=== PATIENT | female | born 1985 | race Caucasian/White ===

== ENCOUNTER 2021-02-07 01:28 | Inpatient (IN) | payer BC ==
[2021-02-07] MEDS ORDERED: Sodium Chloride 0.9% 2.5 ML Syringe FLUSH PRN (01:37)
[2021-02-07] MEDS ORDERED: Carboprost Tromethamine 250 MCG/1 ML Amp IM PRN (01:37)
[2021-02-07] MEDS ORDERED: Sodium Chloride 0.9% 10 ML SDV IV PRN (01:37)
[2021-02-07] MEDS ORDERED: Ondansetron 4 MG/2 ML SDV IVPUSH PRN (01:37)
[2021-02-07] MEDS ORDERED: Misoprostol 200 MCG Tab PO PRN (01:37)
[2021-02-07] MEDS ORDERED: Lidocaine 1% 50 ML MDV INJECT PRN (01:37)
[2021-02-07] MEDS ORDERED: Water For Irrigation,Sterile 1,000 ML Container IRR PRN (01:37)
[2021-02-07] MEDS ORDERED: Methylergonovine 0.2 MG/1 ML Amp IM PRN (01:37)
[2021-02-07] MEDS ORDERED: Sodium Chloride 0.9% 10 ML Syringe FLUSH PRN (01:37)
[2021-02-07] MEDS ORDERED: Nalbuphine 10 MG/1 ML Vial IVPUSH PRN (01:37)
[2021-02-07] MEDS ORDERED: Butorphanol 1 MG/ML SDV IVPUSH PRN (01:37)
[2021-02-07] MEDS ORDERED: Tranexamic Acid 1,000 MG in Sodium Chloride 0.9% 100 ML IV PRN (01:37)
[2021-02-07] MEDS ORDERED: Lactated Ringers 1,000 ML IV SCH (01:45)
[2021-02-07] MEDS ORDERED: Oxytocin/0.9 % Sodium Chloride 30 UNIT/500 ML BAG IV SCH (01:45)
--- NOTE | 2021-02-07 02:00 | PCM.LDHP ---
L&D History of Present Illness - General Date of Service: 02/07/21 Admit Problem/Dx: Patient Status Order with Admit Dx/Problem 02/07/21 01:37 Patient Status [ADT] Routine Admission Diagnosis/Problem Admission Diagnosis/Problem Source of Information: Patient History Limitations: Reports: No Limitations - History of Present Illness Introduction:: 35 year old G1 at 39w3d (EDC 02/11/2021 by LMP c/w 1st trimester US) presented to Labor and Delivery with spontaneous onset of labor. She had routine OB appointment today with Dr. Jeffers and was originally scheduled for IOL tomorrow due to gestational hypertension. States her contractions started around 1700 today and were occurring about every 4-5 minutes upon arrival to the hospital. Desires epidural at this time. Reports small amount of leaking clear fluid and pink-tinged discharge. Reports good movement today. - Related Data Allergies/Adverse Reactions: Allergies Allergy/AdvReac Type Severity Reaction Status Date / Time meperidine [From Demerol] Allergy Vomiting Verified 01/08/21 16:34 morphine Allergy Vomiting Verified 01/08/21 16:34 shellfish derived Allergy Anaphylactic Verified 01/08/21 16:34 Shock Home Medications: Home Meds Pantoprazole Sodium [Protonix] 40 mg PO QAM #30 tablet. 07/25/19 [Rx] Docusate Sodium [Colace] 2 cap PO DAILY 01/08/21 [History] Iron 1 tab PO DAILY 01/08/21 [History] Ondansetron [Zofran] 1 tab PO Q6HR PRN 01/08/21 [History] Pnv No.95/Ferrous Fum/Folic AC [ Vitamin Tablet] 1 tab PO DAILY 01/08/21 [History] Past Medical History Gastrointestinal History: Reports: Other (See Below) Other Gastrointestinal History: ulcers - Past Surgical History GI Surgical History: Reports: Cholecystectomy Social & Family History - Caffeine Use Caffeine Use: Reports: Coffee, Soda, Tea H&P Review of Systems - Review of Systems: Review Of Systems: See Below General: Reports: No Symptoms HEENT: Reports: No Symptoms Pulmonary: Reports: No Symptoms Cardiovascular: Reports: No Symptoms Gastrointestinal: Reports: Abdominal Pain Genitourinary: Reports: No Symptoms Musculoskeletal: Reports: Back Pain Skin: Reports: No Symptoms Psychiatric: Reports: No Symptoms Neurological: Reports: No Symptoms L&D Exam - Exam Exam: See Below - OB Specific Contraction Frequency (min): q4-5 minutes Contraction Intensity: Moderate Movement: Active Heart Tones: Present Heart Tones per Min: 130 Heart Rate (FHR) Variability: Moderate (6-25 bmp) Presentation: Vertex Estimated Weight: 3766 grams by ultrasound on 01/18/2021 - Sanchez Score Sanchez Score Cervix Position: Midposition Sanchez Score Consistency: Medium Sanchez Score Effacement: 51-70% Sanchez Score Dilation: 3-4 cm Sanchez Score 's Station: -2 Sanchez Score Total: 7 - Exam General: Alert Lungs: Normal Respiratory Effort Cardiovascular: Regular Rate GI/Abdominal Exam: Soft, Non-Tender Back Exam: Normal Inspection, Full Range of Motion Extremities: Normal Range of Motion, Non-Tender, No Pedal Edema Skin: Warm, Dry, Intact Psychiatric: Normal Mood Problem List Initiated/Reviewed/Updated: Yes Orders Last 24hrs: Active Orders 24 hr Category Date Time Status Patient Status [ADT] Routine ADT 02/07/21 01:37 Active Heart Tones [RC] CONTINUOUS Care 02/07/21 01:37 Active Non Stress Test [RC] PER UNIT ROUTINE Care 02/07/21 01:37 Active May Shower [RC] ASDIRECTED Care 02/07/21 01:37 Active Notify Provider [RC] PRN Care 02/07/21 01:37 Active Up ad Gely [RC] ASDIRECTED Care 02/07/21 01:37 Active Vaginal Exam [RC] PRN Care 02/07/21 01:37 Active Vital Signs [RC] PER UNIT ROUTINE Care 02/07/21 01:37 Active Clear Liquid Diet [DIET] Diet 02/07/21 Breakfast Active CBC W/O DIFF,HEMOGRAM [HEME] Routine Lab 02/07/21 01:37 Ordered RPR (SYPHILIS SERO) W/ RFLX [REF] Routine Lab 02/07/21 01:37 Ordered TYPE AND SCREEN [BBK] Routine Lab 02/07/21 01:37 Ordered Butorphanol [Stadol] Med 02/07/21 01:37 Active 1 mg IVPUSH Q1H PRN Carboprost Tromethamine [Hemabate DS] Med 02/07/21 01:37 Active 250 mcg IM ASDIRECTED PRN Lactated Ringers [Ringers, Lactated] 1,000 ml Med 02/07/21 01:45 Active IV ASDIRECTED Lidocaine 1% [Xylocaine 1%] Med 02/07/21 01:37 Active 50 ml INJECT ONETIME PRN Methylergonovine [Methergine] Med 02/07/21 01:37 Active 0.2 mg IM ASDIRECTED PRN Nalbuphine [Nubain] Med 02/07/21 01:37 Active 10 mg IVPUSH Q1H PRN Ondansetron [Zofran] Med 02/07/21 01:37 Active 4 mg IVPUSH Q4H PRN Oxytocin/0.9 % Sodium Chloride [Oxytocin 30 Unit/500 ML Med 02/07/21 01:45 Active -NS] 30 unit in 500 ml IV TITRATE Sodium Chloride 0.9% [Normal Saline] Med 02/07/21 01:37 Active 10 ml IV ASDIRECTED PRN Sodium Chloride 0.9% [Saline Flush] Med 02/07/21 01:37 Active 10 ml FLUSH ASDIRECTED PRN Sodium Chloride 0.9% [Saline Flush] Med 02/07/21 01:37 Active 2.5 ml FLUSH ASDIRECTED PRN Tranexamic Acid [Cyklokapron] 1,000 mg Med 02/07/21 01:37 Active Sodium Chloride 0.9% [Normal Saline] 100 ml IV ONETIME Water For Irrigation,Sterile [Sterile Water for Med 02/07/21 01:37 Active Irrigation] 1,000 ml IRR ASDIRECTED PRN miSOPROStoL [Cytotec] Med 02/07/21 01:37 Active 200 mcg PO ONETIME PRN Scalp Electrode [WOMSER] Per Unit Routine Oth 02/07/21 01:37 Ordered Peripheral IV Insertion Adult [OM.PC] Routine Oth 02/07/21 01:37 Ordered Resuscitation Status Routine Resus Stat 02/07/21 01:37 Ordered Medication Orders Butorphanol Tartrate (Butorphanol 1 Mg/Ml Sdv) 1 mg IVPUSH Q1H PRN PRN Reason: Pain Carboprost Tromethamine (Carboprost Tromethamine 250 Mcg/1 Ml Amp) 250 mcg IM ASDIRECTED PRN PRN Reason: Post Hemorrhage Oxytocin/Sodium Chloride (Oxytocin 30 Unit/500 Ml-Ns) 30 unit in 500 mls @ 999 mls/hr IV TITRATE [facility] Tranexamic Acid 1,000 mg/ (Sodium Chloride) 110 mls @ 660 mls/hr IV ONETIME PRN PRN Reason: Bleeding Lactated Ringer's (Ringers, Lactated) 1,000 mls @ 150 mls/hr IV ASDIRECTED L[facility]I Lidocaine HCl (Lidocaine 1% 50 Ml Mdv) 50 ml INJECT ONETIME PRN PRN Reason: Laceration repair Methylergonovine Maleate (Methylergonovine 0.2 Mg/1 Ml Amp) 0.2 mg IM ASDIRECTED PRN PRN Reason: Post Hemorrhage Misoprostol (Misoprostol 200 Mcg Tab) 200 mcg PO ONETIME PRN PRN Reason: Post Hemorrhage Nalbuphine HCl (Nalbuphine 10 Mg/1 Ml Vial) 10 mg IVPUSH Q1H PRN PRN Reason: Pain (severe 7-10) Ondansetron HCl (Ondansetron 4 Mg/2 Ml Sdv) 4 mg IVPUSH Q4H PRN PRN Reason: Nausea/Vomiting Sodium Chloride (Sodium Chloride 0.9% 10 Ml Syringe) 10 ml FLUSH ASDIRECTED PRN PRN Reason: Keep Vein Open Sodium Chloride (Sodium Chloride 0.9% 2.5 Ml Syringe) 2.5 ml FLUSH ASDIRECTED PRN PRN Reason: Keep Vein Open Sodium Chloride (Sodium Chloride 0.9% 10 Ml Sdv) 10 ml IV ASDIRECTED PRN PRN Reason: IV Use Sterile Water (Water For Irrigation,Sterile 1,000 Ml Container) 1,000 ml IRR ASDIRECTED PRN PRN Reason: delivery Assessment/Plan Comment:: 35 year old G1 at 39w3d (EDC 02/11/2021 by LMP c/w 1st trimester US) with spontaneous onset of labor * Admit to Labor and Delivery for labor * Rh positive, rubella immune, GBS negative * Gestational hypertension- normotensive upon arrival. Preeclampsia labs ordered. * Will obtain Amnisure due to c/o leaking fluid * Epidural PRN pain management Dispo: stable. Anticipate expectant management of labor.
[2021-02-07] MEDS ORDERED: fentaNYL 100 MCG/2 ML SDV ONE ×2 (02:06→02:46)
[2021-02-07] MEDS ORDERED: Ropivacaine 0.2% PF 2 MG/ML 20 ML SDV ONE (02:06)
[2021-02-07] MEDS ORDERED: Ropivacaine HCl/PF 100 ML ONE ×2 (02:06→08:40)
--- NOTE | 2021-02-07 02:43 | PCM48HPAN ---
Post Anesthesia Note - EVALUATION WITHIN 48HRS OF ANESTHETIC Vital Signs in Normal Range: Yes Patient Participated in Evaluation: Yes Respiratory Function Stable: Yes Airway Patent: Yes Cardiovascular Function Stable: Yes Hydration Status Stable: Yes Pain Control Satisfactory: Yes Nausea and Vomiting Control Satisfactory: Yes Mental Status Recovered: Yes
--- NOTE | 2021-02-07 02:43 | PCM.PREANE ---
Preanesthetic Assessment - Anesthesia/Transfusion/Family Hx Anesthesia History: Prior Anesthesia Reaction Type of Anesthesia Reaction: Anesthesia Awareness Family History of Anesthesia Reaction: No Transfusion History: No Prior Transfusion(s) - Review of Systems General: No Symptoms Pulmonary: No Symptoms Cardiovascular: No Symptoms Gastrointestinal: No Symptoms, Nausea Neurological: No Symptoms Other: Reports: None, Anxiety - Physical Assessment NPO Status Date: 02/07/21 NPO Status Time: 00:00 Height: 5 ft 6 in Weight: 160 lb ASA Class: 3 Mental Status: Alert & Oriented x3 Airway Class: Mallampati = 2 Dentition: Reports: Normal Dentition ROM/Head Extension: Full Lungs: Clear to Auscultation, Normal Respiratory Effort Cardiovascular: Regular Rate, Regular Rhythm - Lab Values: Laboratory Last Values WBC 13.40 K/uL (4.0-11.0) H 02/07/21 02:03 RBC 3.89 M/uL (4.30-5.90) L 02/07/21 02:03 Hgb 11.6 g/dL (12.0-16.0) L 02/07/21 02:03 Hct 35.8 % (36.0-46.0) L 02/07/21 02:03 MCV 92.0 fL (80.0-98.0) 02/07/21 02:03 MCH 29.8 pg (27.0-32.0) 02/07/21 02:03 MCHC 32.4 g/dL (31.0-37.0) 02/07/21 02:03 RDW Std Deviation 47.6 fl (28.0-62.0) 02/07/21 02:03 RDW Coeff of Alex 14 % (11.0-15.0) 02/07/21 02:03 Plt Count 198 K/uL (150-400) 02/07/21 02:03 MPV 10.30 fL (7.40-12.00) 02/07/21 02:03 Nucleated RBC % 0.0 /100WBC 02/07/21 02:03 Nucleated RBCs # 0 K/uL 02/07/21 02:03 - Allergies Allergies/Adverse Reactions: Allergies Allergy/AdvReac Type Severity Reaction Status Date / Time meperidine [From Demerol] Allergy Vomiting Verified 01/08/21 16:34 morphine Allergy Vomiting Verified 01/08/21 16:34 shellfish derived Allergy Anaphylactic Verified 01/08/21 16:34 Shock - Acknowledgements Anesthesia Type Planned: Epidural Pt an Appropriate Candidate for the Planned Anesthesia: Yes Alternatives and Risks of Anesthesia Discussed w Pt/Guardian: Yes Pt/Guardian Understands and Agrees with Anesthesia Plan: Yes PreAnesthesia Questionnaire - Past Health History Medical/Surgical History: Denies Medical/Surgical History Gastrointestinal History: Reports: Other (See Below) Other Gastrointestinal History: ulcers - Past Surgical History GI Surgical History: Reports: Cholecystectomy - SUBSTANCE USE Tobacco Use Status *Q: Never Tobacco User Second Hand Smoke Exposure: No Recreational Drug Use History: No - HOME MEDS Home Medications: Home Meds Pantoprazole Sodium [Protonix] 40 mg PO QAM #30 tablet. 07/25/19 [Rx] Docusate Sodium [Colace] 2 cap PO DAILY 01/08/21 [History] Iron 1 tab PO DAILY 01/08/21 [History] Ondansetron [Zofran] 1 tab PO Q6HR PRN 01/08/21 [History] Pnv No.95/Ferrous Fum/Folic AC [ Vitamin Tablet] 1 tab PO DAILY 01/08/21 [History] - CURRENT (IN HOUSE) MEDS Current Meds: Current Medications Butorphanol Tartrate (Butorphanol 1 Mg/Ml Sdv) 1 mg IVPUSH Q1H PRN PRN Reason: Pain Carboprost Tromethamine (Carboprost Tromethamine 250 Mcg/1 Ml Amp) 250 mcg IM ASDIRECTED PRN PRN Reason: Post Hemorrhage Oxytocin/Sodium Chloride (Oxytocin 30 Unit/500 Ml-Ns) 30 unit in 500 mls @ 999 mls/hr IV TITRATE [facility] Tranexamic Acid 1,000 mg/ (Sodium Chloride) 110 mls @ 660 mls/hr IV ONETIME PRN PRN Reason: Bleeding Lactated Ringer's (Ringers, Lactated) 1,000 mls @ 150 mls/hr IV ASDIRECTED [facility] Lidocaine HCl (Lidocaine 1% 50 Ml Mdv) 50 ml INJECT ONETIME PRN PRN Reason: Laceration repair Methylergonovine Maleate (Methylergonovine 0.2 Mg/1 Ml Amp) 0.2 mg IM ASDIRECTED PRN PRN Reason: Post Hemorrhage Misoprostol (Misoprostol 200 Mcg Tab) 200 mcg PO ONETIME PRN PRN Reason: Post Hemorrhage Nalbuphine HCl (Nalbuphine 10 Mg/1 Ml Vial) 10 mg IVPUSH Q1H PRN PRN Reason: Pain (severe 7-10) Ondansetron HCl (Ondansetron 4 Mg/2 Ml Sdv) 4 mg IVPUSH Q4H PRN PRN Reason: Nausea/Vomiting Sodium Chloride (Sodium Chloride 0.9% 10 Ml Syringe) 10 ml FLUSH ASDIRECTED PRN PRN Reason: Keep Vein Open Sodium Chloride (Sodium Chloride 0.9% 2.5 Ml Syringe) 2.5 ml FLUSH ASDIRECTED PRN PRN Reason: Keep Vein Open Sodium Chloride (Sodium Chloride 0.9% 10 Ml Sdv) 10 ml IV ASDIRECTED PRN PRN Reason: IV Use Sterile Water (Water For Irrigation,Sterile 1,000 Ml Container) 1,000 ml IRR ASDIRECTED PRN PRN Reason: delivery Discontinued Medications Fentanyl (Fentanyl 100 Mcg/2 Ml Sdv) Confirm Administered Dose 100 mcg [facility] Stop: 02/07/21 02:07 Ropivacaine (Naropin 0.2%) Confirm Administered Dose 100 mls @ as directed .[facility]TE [facility] Stop: 02/07/21 02:07 Ropivacaine (Ropivacaine 0.2% Pf 2 Mg/Ml 20 Ml Sdv) Confirm Administered Dose 20 ml [facility] Stop: 02/07/21 02:07
[2021-02-07] MEDS ORDERED: Ondansetron 4 MG/2 ML SDV ONE (02:46)
[2021-02-07 03:03] LABS: BLOOD UREA NITROGEN,BUN 11 mg/dL (7.0-18.0); CARBON DIOXIDE,CO2 25.2 mmol/L (21.0-32.0); CHLORIDE,CL 103 mmol/L (98-107); GLUCOSE RANDOM 98 mg/dL (74-106); POTASSIUM,K 3.6 mmol/L (3.5-5.1); SODIUM,NA 137 mmol/L (136-145)
[2021-02-07] MEDS ORDERED: Acetaminophen 500 MG Tab PO ONE (07:30)
[2021-02-07] MEDS ORDERED: Bupivacaine 0.25% 10 ML SDV ONE (08:39)
[2021-02-07] MEDS ORDERED: Docusate Sodium 100 MG Cap PO PRN (11:55)
[2021-02-07] MEDS ORDERED: Ibuprofen 400 MG Tab PO PRN (11:55)
[2021-02-07] MEDS ORDERED: Benzocaine/Menthol 20%-0.5% Spray 78 GM Cannister TOP PRN (11:55)
[2021-02-07] MEDS ORDERED: Acetaminophen 500 MG Tab PO PRN (11:55)
[2021-02-07] MEDS ORDERED: Bisacodyl 10 MG Supp RECTAL PRN (11:55)
[2021-02-07] MEDS ORDERED: Witch Hazel Medicated Pads 40/Jar TOP PRN (11:55)
[2021-02-07] MEDS: Acetaminophen 500 MG Tab PO PRN ×2 (15:38→22:12)
--- NOTE | 2021-02-07 18:36 | PCM.DEL ---
L & D Note - General Info Date of Service: 02/07/21 - Delivery Note Labor: Spontaneous Delivery Outcome: Livebirth Presentation: Left Occiput Anterior (LALITHA) Nuchal Cord: None Anesthesia Type: Epidural Amniotic Fluid Description: Clear Episiotomy Type: None Laceration: 2nd Degree Suture type: Other (moncryl) Suture size: 2-0 Placenta: Intact Cord: 3 Vessels Estimated Blood Loss: 300 Resuscitation Needed: No Score 1 min: 8 Score 5 min: 9 Delivery Comments (Free Text/Narrative):: Live male delivered at 9.03am , 8/9 weight 4070g 2nd degree laceration repaired in layers - General Info Date of Service: 02/07/21 - Patient Data Vitals - Most Recent: Last Vital Signs Temp 37.0 C 02/07/21 15:30 Pulse 85 02/07/21 15:30 Resp 18 02/07/21 15:30 BP 132/76 02/07/21 15:30 Pulse Ox 96 02/07/21 15:30 Weight - Most Recent: 88.904 kg I&O - Last 24 Hours: Intake & Output 02/07/21 02/07/21 02/07/21 06:59 14:59 22:59 Output Total 350 Balance -350 Lab Results Last 24 Hours: Laboratory Results - last 24 hr 02/07/21 02/07/21 02/07/21 Range/Units 02:03 02:03 02:03 WBC 13.40 H (4.0-11.0) K/uL RBC 3.89 L (4.30-5.90) M/uL Hgb 11.6 L (12.0-16.0) g/dL Hct 35.8 L (36.0-46.0) % MCV 92.0 (80.0-98.0) fL MCH 29.8 (27.0-32.0) pg MCHC 32.4 (31.0-37.0) g/dL RDW Std Deviation 47.6 (28.0-62.0) fl RDW Coeff of Alex 14 (11.0-15.0) % Plt Count 198 (150-400) K/uL MPV 10.30 (7.40-12.00) fL Nucleated RBC % 0.0 /100WBC Nucleated RBCs # 0 K/uL Sodium 137 (136-145) mmol/L Potassium 3.6 (3.5-5.1) mmol/L Chloride 103 (98-107) mmol/L Carbon Dioxide 25.2 (21.0-32.0) mmol/L BUN 11 (7.0-18.0) mg/dL Creatinine 0.7 (0.6-1.0) mg/dL Est Cr Clr Drug Dosing 107.01 mL/min Estimated GFR (MDRD) > 60.0 ml/min Glucose 98 (74-106) mg/dL Calcium 8.8 (8.5-10.1) mg/dL Total Bilirubin 0.2 (0.2-1.0) mg/dL AST 17 (15-37) IU/L ALT 18 (14-63) IU/L Alkaline Phosphatase 209 H (46-116) U/L Total Protein 6.5 (6.4-8.2) g/dL Albumin 2.6 L (3.4-5.0) g/dL Globulin 3.9 (2.6-4.0) g/dL Albumin/Globulin Ratio 0.7 L (0.9-1.6) Ur Random Creatinine mg/dL U Random Total Protein (<11.9) mg/dL Protein/Creatinin Ratio Membrane Rupture SARS-CoV-2 RNA (MIGUELINA) (NEGATIVE) Blood Type O POSITIVE Antibody Screen NEGATIVE 02/07/21 02/07/21 02/07/21 Range/Units 02:06 02:06 03:50 WBC (4.0-11.0) K/uL RBC (4.30-5.90) M/uL Hgb (12.0-16.0) g/dL Hct (36.0-46.0) % MCV (80.0-98.0) fL MCH (27.0-32.0) pg MCHC (31.0-37.0) g/dL RDW Std Deviation (28.0-62.0) fl RDW Coeff of Alex (11.0-15.0) % Plt Count (150-400) K/uL MPV (7.40-12.00) fL Nucleated RBC % /100WBC Nucleated RBCs # K/uL Sodium (136-145) mmol/L Potassium (3.5-5.1) mmol/L Chloride (98-107) mmol/L Carbon Dioxide (21.0-32.0) mmol/L BUN (7.0-18.0) mg/dL Creatinine (0.6-1.0) mg/dL Est Cr Clr Drug Dosing mL/min Estimated GFR (MDRD) ml/min Glucose (74-106) mg/dL Calcium (8.5-10.1) mg/dL Total Bilirubin (0.2-1.0) mg/dL AST (15-37) IU/L ALT (14-63) IU/L Alkaline Phosphatase (46-116) U/L Total Protein (6.4-8.2) g/dL Albumin (3.4-5.0) g/dL Globulin (2.6-4.0) g/dL Albumin/Globulin Ratio (0.9-1.6) Ur Random Creatinine 68.1 mg/dL U Random Total Protein 21.5 H (<11.9) mg/dL Protein/Creatinin Ratio 0.3 Membrane Rupture NEGATIVE SARS-CoV-2 RNA (MIGUELINA) NEGATIVE (NEGATIVE) Blood Type Antibody Screen Med Orders - Current: Current Medications Acetaminophen (Acetaminophen 500 Mg Tab) 500 mg PO Q4H PRN PRN Reason: Pain Acetaminophen (Acetaminophen 500 Mg Tab) 1,000 mg PO Q4H PRN PRN Reason: Pain Last Admin: 02/07/21 15:38 Dose: 1,000 mg Documented by: Benzocaine/Menthol (Benzocaine/Menthol 20%-0.5% [place] 78 Gm Cannister) 78 gm TOP ASDIRECTED PRN PRN Reason: Perineal Comfort Measure Last Admin: 02/07/21 15:38 Dose: 1 canister Documented by: Bisacodyl (Bisacodyl 10 Mg Supp) 10 mg RECTAL ONETIME PRN PRN Reason: Constipation Butorphanol Tartrate (Butorphanol 1 Mg/Ml Sdv) 1 mg IVPUSH Q1H PRN PRN Reason: Pain Carboprost Tromethamine (Carboprost Tromethamine 250 Mcg/1 Ml Amp) 250 mcg IM ASDIRECTED PRN PRN Reason: Post Hemorrhage Docusate Sodium (Docusate Sodium 100 Mg Cap) 100 mg PO BID PRN PRN Reason: Constipation Emollient Ointment (Lanolin 100% Cream 7 Gm Tube) 0 gm TOP ASDIRECTED PRN PRN Reason: Sore Nipples Oxytocin/Sodium Chloride (Oxytocin 30 Unit/500 Ml-Ns) 30 unit in 500 mls @ 999 mls/hr IV TITRATE [facility] Last Admin: 02/07/21 09:04 Dose: 999 mls/hr Documented by: Tranexamic Acid 1,000 mg/ (Sodium Chloride) 110 mls @ 660 mls/hr IV ONETIME PRN PRN Reason: Bleeding Lactated Ringer's (Ringers, Lactated) 1,000 mls @ 150 mls/hr IV ASDIRECTED [facility] Ibuprofen (Ibuprofen 400 Mg Tab) 400 mg PO Q4H PRN PRN Reason: Pain Ibuprofen (Ibuprofen 800 Mg Tab) 800 mg PO Q6H PRN PRN Reason: Pain Lidocaine HCl (Lidocaine 1% 50 Ml Mdv) 50 ml INJECT ONETIME PRN PRN Reason: Laceration repair Last Admin: 02/07/21 09:50 Dose: 50 ml Documented by: Methylergonovine Maleate (Methylergonovine 0.2 Mg/1 Ml Amp) 0.2 mg IM ASDIRECTED PRN PRN Reason: Post Hemorrhage Misoprostol (Misoprostol 200 Mcg Tab) 200 mcg PO ONETIME PRN PRN Reason: Post Hemorrhage Nalbuphine HCl (Nalbuphine 10 Mg/1 Ml Vial) 10 mg IVPUSH Q1H PRN PRN Reason: Pain (severe 7-10) Ondansetron HCl (Ondansetron 4 Mg/2 Ml Sdv) 4 mg IVPUSH Q4H PRN PRN Reason: Nausea/Vomiting Sodium Chloride (Sodium Chloride 0.9% 10 Ml Syringe) 10 ml FLUSH ASDIRECTED PRN PRN Reason: Keep Vein Open Sodium Chloride (Sodium Chloride 0.9% 2.5 Ml Syringe) 2.5 ml FLUSH ASDIRECTED PRN PRN Reason: Keep Vein Open Sodium Chloride (Sodium Chloride 0.9% 10 Ml Sdv) 10 ml IV ASDIRECTED PRN PRN Reason: IV Use Sterile Water (Water For Irrigation,Sterile 1,000 Ml Container) 1,000 ml IRR ASDIRECTED PRN PRN Reason: delivery Witch Jovana (Witch Jovana Medicated Pads 40/Jar) 1 pad TOP ASDIRECTED PRN PRN Reason: comfort care Last Admin: 02/07/21 15:38 Dose: 1 pad Documented by: Discontinued Medications Acetaminophen (Acetaminophen 500 Mg Tab) 1,000 mg PO ONETIME ONE Stop: 02/07/21 07:31 Last Admin: 02/07/21 07:41 Dose: 1,000 mg Documented by: Bupivacaine HCl (Bupivacaine 0.25% 10 Ml Sdv) Confirm Administered Dose 10 ml .ROUTE .[facility]-MED ONE Stop: 02/07/21 08:40 Last Admin: 02/07/21 10:57 Dose: Not Given Documented by: Fentanyl (Fentanyl 100 Mcg/2 Ml Sdv) Confirm Administered Dose 100 mcg .ROUTE .[facility]-MED ONE Stop: 02/07/21 02:07 Last Admin: 02/07/21 10:45 Dose: Not Given Documented by: Fentanyl (Fentanyl 100 Mcg/2 Ml Sdv) Confirm Administered Dose 100 mcg .ROUTE .[facility]-MED ONE Stop: 02/07/21 02:47 Last Admin: 02/07/21 10:51 Dose: Not Given Documented by: Ropivacaine (Naropin 0.2%) Confirm Administered Dose 100 mls @ as directed .ROUTE .[facility]-MED ONE Stop: 02/07/21 02:07 Last Admin: 02/07/21 10:45 Dose: Not Given Documented by: Ropivacaine (Naropin 0.2%) Confirm Administered Dose 100 mls @ as directed .ROUTE .[facility]-MED ONE Stop: 02/07/21 08:41 Last Admin: 02/07/21 10:57 Dose: Not Given Documented by: Ondansetron HCl (Ondansetron 4 Mg/2 Ml Sdv) Confirm Administered Dose 4 mg .ROUTE .[facility]-MED ONE Stop: 02/07/21 02:47 Last Admin: 02/07/21 10:51 Dose: Not Given Documented by: Ropivacaine (Ropivacaine 0.2% Pf 2 Mg/Ml 20 Ml Sdv) Confirm Administered Dose 20 ml .ROUTE .[facility]-MED ONE Stop: 02/07/21 02:07 Last Admin: 02/07/21 10:44 Dose: Not Given Documented by: - Problem List & Annotations (1) Vaginal delivery SNOMED Code(s): 147065992 Code(s): O80 - ENCOUNTER FOR FULL-TERM UNCOMPLICATED DELIVERY Status: Acute Current Visit: Yes - Problem List Review Problem List Initiated/Reviewed/Updated: No - My Orders Last 24 Hours: My Active Orders 02/07/21 09:15 Patient Status [ADT] Routine Assess Lochia [WOMSER] Per Unit Routine Assess Uterine Involution [WOMSER] Per Unit Routine Peripheral IV Discontinue [OM.PC] Routine 02/07/21 11:55 Acetaminophen [Tylenol Extra Strength] 1,000 mg PO Q4H PRN Acetaminophen [Tylenol Extra Strength] 500 mg PO Q4H PRN Benzocaine/Menthol [Dermoplast Pain Relief 20%-0.5% [place]] 78 gm TOP ASDIRECTED PRN Docusate Sodium [Colace] 100 mg PO BID PRN Ibuprofen [Motrin] 400 mg PO Q4H PRN Ibuprofen [Motrin] 800 mg PO Q6H PRN Lanolin [Lansinoh HPA] See Dose Instructions TOP ASDIRECTED PRN bisacodyL [Dulcolax] 10 mg RECTAL ONETIME PRN witch Jovana [Tucks] 1 pad TOP ASDIRECTED PRN 02/08/21 05:11 HEMOGLOBIN/HEMATOCRIT,HH [HEME] Timed 02/08/21 Breakfast Regular Diet [DIET] - Plan Plan:: 35 year old G1 at 39w3d (EDC 02/11/2021 by LMP c/w 1st trimester US) with spontaneous onset of labor * Admit to Labor and Delivery for labor * Rh positive, rubella immune, GBS negative * Gestational hypertension- normotensive upon arrival. Preeclampsia labs ordered. * Will obtain Amnisure due to c/o leaking fluid * Epidural PRN pain management Dispo: stable. Anticipate expectant management of labor.
[2021-02-08] MEDS: Acetaminophen 500 MG Tab PO PRN ×2 (06:51→20:32)
--- NOTE | 2021-02-08 07:24 | PCM.POSTAN ---
POST ANESTHESIA ASSESSMENT - MENTAL STATUS Mental Status: Alert, Oriented - VITAL SIGNS Vital Signs: Last Vital Signs Temp 97.2 F 02/08/21 04:54 Pulse 76 02/08/21 04:54 Resp 16 02/08/21 04:54 BP 94/57 L 02/08/21 04:54 Pulse Ox 97 02/08/21 04:54 - RESPIRATORY Respiratory Status: Respiratory Rate WNL, Airway Patent, O2 Saturation Stable - CARDIOVASCULAR CV Status: Pulse Rate WNL, Blood Pressure Stable - GASTROINTESTINAL GI Status: No Symptoms - POST OP HYDRATION Hydration Status: Adequate & Stable
--- NOTE | 2021-02-08 08:37 | PCM.PNPP ---
- General Info Date of Service: 02/08/21 Functional Status: Reports: Pain Controlled, Tolerating Diet, Ambulating, Urinating - Review of Systems General: Reports: Fatigue. Denies: Fever, Weakness Pulmonary: Denies: Shortness of Breath Cardiovascular: Denies: Chest Pain, Palpitations, Lightheadedness Gastrointestinal: Denies: Abdominal Pain, Nausea, Vomiting Genitourinary: Denies: Flank Pain Musculoskeletal: Reports: No Symptoms Skin: Reports: No Symptoms Neurological: Reports: Headache Psychiatric: Reports: No Symptoms - General Info Date of Service: 02/08/21 - Patient Data Vital Signs - Most Recent: Last Vital Signs Temp 36.5 C 02/08/21 08:03 Pulse 91 02/08/21 08:03 Resp 15 02/08/21 08:03 BP 112/69 02/08/21 08:03 Pulse Ox 95 02/08/21 08:03 Weight - Most Recent: 88.904 kg Lab Results - Last 24 Hours: Laboratory Results - last 24 hr 02/07/21 02/08/21 Range/Units 09:03 05:20 Hgb 10.8 L (12.0-16.0) g/dL Hct 33.0 L (36.0-46.0) % Cord ABG pH 7.165 L (7.18-7.38) Cord ABG Base Excess -5 (-10--2) Med Orders - Current: Current Medications Acetaminophen (Acetaminophen 500 Mg Tab) 500 mg PO Q4H PRN PRN Reason: Pain Acetaminophen (Acetaminophen 500 Mg Tab) 1,000 mg PO Q4H PRN PRN Reason: Pain Last Admin: 02/08/21 06:51 Dose: 1,000 mg Documented by: Benzocaine/Menthol (Benzocaine/Menthol 20%-0.5% [place] 78 Gm Cannister) 78 gm TOP ASDIRECTED PRN PRN Reason: Perineal Comfort Measure Last Admin: 02/07/21 15:38 Dose: 1 canister Documented by: Bisacodyl (Bisacodyl 10 Mg Supp) 10 mg RECTAL ONETIME PRN PRN Reason: Constipation Butorphanol Tartrate (Butorphanol 1 Mg/Ml Sdv) 1 mg IVPUSH Q1H PRN PRN Reason: Pain Carboprost Tromethamine (Carboprost Tromethamine 250 Mcg/1 Ml Amp) 250 mcg IM ASDIRECTED PRN PRN Reason: Post Hemorrhage Docusate Sodium (Docusate Sodium 100 Mg Cap) 100 mg PO BID PRN PRN Reason: Constipation Emollient Ointment (Lanolin 100% Cream 7 Gm Tube) 0 gm TOP ASDIRECTED PRN PRN Reason: Sore Nipples Oxytocin/Sodium Chloride (Oxytocin 30 Unit/500 Ml-Ns) 30 unit in 500 mls @ 999 mls/hr IV TITRATE LALI Last Admin: 02/07/21 09:04 Dose: 999 mls/hr Documented by: Tranexamic Acid 1,000 mg/ (Sodium Chloride) 110 mls @ 660 mls/hr IV ONETIME PRN PRN Reason: Bleeding Lactated Ringer's (Ringers, Lactated) 1,000 mls @ 150 mls/hr IV ASDIRECTED [facility] Ibuprofen (Ibuprofen 400 Mg Tab) 400 mg PO Q4H PRN PRN Reason: Pain Ibuprofen (Ibuprofen 800 Mg Tab) 800 mg PO Q6H PRN PRN Reason: Pain Lidocaine HCl (Lidocaine 1% 50 Ml Mdv) 50 ml INJECT ONETIME PRN PRN Reason: Laceration repair Last Admin: 02/07/21 09:50 Dose: 50 ml Documented by: Methylergonovine Maleate (Methylergonovine 0.2 Mg/1 Ml Amp) 0.2 mg IM ASDIRECTED PRN PRN Reason: Post Hemorrhage Misoprostol (Misoprostol 200 Mcg Tab) 200 mcg PO ONETIME PRN PRN Reason: Post Hemorrhage Nalbuphine HCl (Nalbuphine 10 Mg/1 Ml Vial) 10 mg IVPUSH Q1H PRN PRN Reason: Pain (severe 7-10) Ondansetron HCl (Ondansetron 4 Mg/2 Ml Sdv) 4 mg IVPUSH Q4H PRN PRN Reason: Nausea/Vomiting Sodium Chloride (Sodium Chloride 0.9% 10 Ml Syringe) 10 ml FLUSH ASDIRECTED PRN PRN Reason: Keep Vein Open Sodium Chloride (Sodium Chloride 0.9% 2.5 Ml Syringe) 2.5 ml FLUSH ASDIRECTED PRN PRN Reason: Keep Vein Open Sodium Chloride (Sodium Chloride 0.9% 10 Ml Sdv) 10 ml IV ASDIRECTED PRN PRN Reason: IV Use Sterile Water (Water For Irrigation,Sterile 1,000 Ml Container) 1,000 ml IRR ASDIRECTED PRN PRN Reason: delivery Witch Jovana (Witch Jovana Medicated Pads 40/Jar) 1 pad TOP ASDIRECTED PRN PRN Reason: comfort care Last Admin: 02/07/21 15:38 Dose: 1 pad Documented by: Discontinued Medications Acetaminophen (Acetaminophen 500 Mg Tab) 1,000 mg PO ONETIME ONE Stop: 02/07/21 07:31 Last Admin: 02/07/21 07:41 Dose: 1,000 mg Documented by: Bupivacaine HCl (Bupivacaine 0.25% 10 Ml Sdv) Confirm Administered Dose 10 ml .ROUTE .[facility]-MED ONE Stop: 02/07/21 08:40 Last Admin: 02/07/21 10:57 Dose: Not Given Documented by: Fentanyl (Fentanyl 100 Mcg/2 Ml Sdv) Confirm Administered Dose 100 mcg .ROUTE .[facility]-MED ONE Stop: 02/07/21 02:07 Last Admin: 02/07/21 10:45 Dose: Not Given Documented by: Fentanyl (Fentanyl 100 Mcg/2 Ml Sdv) Confirm Administered Dose 100 mcg .ROUTE .[facility]-MED ONE Stop: 02/07/21 02:47 Last Admin: 02/07/21 10:51 Dose: Not Given Documented by: Ropivacaine (Naropin 0.2%) Confirm Administered Dose 100 mls @ as directed .ROUTE .[facility]-MED ONE Stop: 02/07/21 02:07 Last Admin: 02/07/21 10:45 Dose: Not Given Documented by: Ropivacaine (Naropin 0.2%) Confirm Administered Dose 100 mls @ as directed .ROUTE .[facility]-MED ONE Stop: 02/07/21 08:41 Last Admin: 02/07/21 10:57 Dose: Not Given Documented by: Ondansetron HCl (Ondansetron 4 Mg/2 Ml Sdv) Confirm Administered Dose 4 mg .ROUTE .[facility]-MED ONE Stop: 02/07/21 02:47 Last Admin: 02/07/21 10:51 Dose: Not Given Documented by: Ropivacaine (Ropivacaine 0.2% Pf 2 Mg/Ml 20 Ml Sdv) Confirm Administered Dose 20 ml .ROUTE .[facility]-MED ONE Stop: 02/07/21 02:07 Last Admin: 02/07/21 10:44 Dose: Not Given Documented by: - Interaction Disposition, : in Room with Family Infant Interaction: Holding Infant Support Person: - Recovery Exam Fundal Tone: Firm Fundal Placement: Midline Lochia Amount: Scant Lochia Color: Rubra/Red Perineum Description: Other (see below) Other Perinuem Description: Laceration with repair. Episiotomy/Laceration: Approximated Bladder Status: Voiding Urinary Elimination: Voided - Exam General: Alert, Oriented Lungs: Normal Respiratory Effort Cardiovascular: Regular Rate, Regular Rhythm GI/Abdominal Exam: Normal Bowel Sounds, Soft, Non-Tender Extremities: Pedal Edema (trace). No: Sabi's Sign Skin: Warm, Dry, Intact Neurological: No New Focal Deficit, Reflexes Equal Bilateral Psy/Mental Status: Alert, Normal Affect, Normal Mood - Problem List & Annotations (1) Vaginal delivery SNOMED Code(s): 683489491 Code(s): O80 - ENCOUNTER FOR FULL-TERM UNCOMPLICATED DELIVERY Status: Acute Current Visit: Yes - Problem List Review Problem List Initiated/Reviewed/Updated: Yes - Assessment Assessment:: PPD 1 status post Gestational hypertension--BPs normal range - Plan Plan:: Continue PP cares, monitor BPs.
--- NOTE | 2021-02-08 09:41 | OR ---
SURGEON: KARTHIK SNYDER DATE OF PROCEDURE: 02/07/2021 PREOPERATIVE DIAGNOSIS: A 35-year-old G1, P0, at 39 weeks 2 days, who was with gestational hypertension. POSTOPERATIVE DIAGNOSIS: A 35-year-old G1, P0, at 39 weeks 2 days, who was with gestational hypertension. PROCEDURES: Normal spontaneous vaginal delivery with a repair of second-degree laceration. ESTIMATED BLOOD LOSS: 300. INTRAVENOUS FLUIDS: Pitocin running. ANESTHESIA: Epidural. NOTES AND FINDING: A live male delivered at 9:03 a.m. score 8 and 9, weight is 4070 g. BRIEF HISTORY ABOUT THE PATIENT: She was a patient at 39 weeks and 2 days, was scheduled for induction for gestational hypertension. However, the patient came in labor and was noted to be 4 to 5 cm dilated. The patient ruptured at around 3 a.m. She had a normal labor curve. The patient was initially being managed by Dr. Barnes for the night, who signed off the patient in the morning to me. I was called that the patient was fully dilated and willing to push. DESCRIPTION OF PROCEDURE: After being draped appropriately, the patient was encouraged to push. With good pushing effort, the patient delivered the head, followed subsequently by the anterior and posterior shoulder. Body of the infant was delivered. Infant was placed on maternal abdomen. Delayed cord clamping was observed. The cord blood gas was obtained. was placed on maternal abdomen. The placenta was delivered via controlled cord traction. After delivery of the placenta, uterus was noted to be firm. Normal bleeding was noted. Pitocin was running. The perineum was inspected. A second-degree laceration was noted, which was repaired in layer by 2-0 Monocryl. The patient tolerated the procedure well. Instrument and pad counts were correct x2. KILO / DONTAE /[id number] MTDSampson
[2021-02-08] MEDS: Lanolin 100% Cream 7 GM Tube TOP PRN (10:55)
[2021-02-08] MEDS: Ibuprofen 800 MG Tab PO PRN (10:55)
--- NOTE | 2021-02-08 14:24 | PCM.SN.2 ---
- Free Text/Narrative Note: Clarification of epidural placement and management time. Epidural placement was from 0210 to 0304 on 02/07/2021 Please see description of procedure on Anesthesia record
[2021-02-09] MEDS: Ibuprofen 800 MG Tab PO PRN (04:32)
--- NOTE | 2021-02-09 11:13 | PCM.PNPP ---
- General Info Date of Service: 02/09/21 Functional Status: Reports: Pain Controlled, Tolerating Diet, Ambulating, Urinating - Review of Systems General: Reports: Fatigue. Denies: Fever, Weakness Pulmonary: Denies: Shortness of Breath Cardiovascular: Denies: Chest Pain, Palpitations, Lightheadedness Gastrointestinal: Denies: Abdominal Pain, Nausea, Vomiting Genitourinary: Denies: Flank Pain Musculoskeletal: Reports: No Symptoms Skin: Reports: No Symptoms Neurological: Reports: No Symptoms Psychiatric: Reports: No Symptoms - General Info Date of Service: 02/09/21 - Patient Data Vital Signs - Most Recent: Last Vital Signs Temp 36.3 C 02/09/21 08:00 Pulse 95 02/09/21 08:00 Resp 16 02/09/21 08:00 BP 104/69 02/09/21 08:00 Pulse Ox 96 02/09/21 08:00 Weight - Most Recent: 88.904 kg Med Orders - Current: Current Medications Acetaminophen (Acetaminophen 500 Mg Tab) 500 mg PO Q4H PRN PRN Reason: Pain Acetaminophen (Acetaminophen 500 Mg Tab) 1,000 mg PO Q4H PRN PRN Reason: Pain Last Admin: 02/08/21 20:32 Dose: 1,000 mg Documented by: Benzocaine/Menthol (Benzocaine/Menthol 20%-0.5% [place] 78 Gm Cannister) 78 gm TOP ASDIRECTED PRN PRN Reason: Perineal Comfort Measure Last Admin: 02/07/21 15:38 Dose: 1 canister Documented by: Bisacodyl (Bisacodyl 10 Mg Supp) 10 mg RECTAL ONETIME PRN PRN Reason: Constipation Butorphanol Tartrate (Butorphanol 1 Mg/Ml Sdv) 1 mg IVPUSH Q1H PRN PRN Reason: Pain Carboprost Tromethamine (Carboprost Tromethamine 250 Mcg/1 Ml Amp) 250 mcg IM ASDIRECTED PRN PRN Reason: Post Hemorrhage Docusate Sodium (Docusate Sodium 100 Mg Cap) 100 mg PO BID PRN PRN Reason: Constipation Last Admin: 02/08/21 10:55 Dose: 100 mg Documented by: Emollient Ointment (Lanolin 100% Cream 7 Gm Tube) 0 gm TOP ASDIRECTED PRN PRN Reason: Sore Nipples Last Admin: 02/08/21 10:55 Dose: 7 gm Documented by: Oxytocin/Sodium Chloride (Oxytocin 30 Unit/500 Ml-Ns) 30 unit in 500 mls @ 999 mls/hr IV TITRATE LALI Last Admin: 02/07/21 09:04 Dose: 999 mls/hr Documented by: Tranexamic Acid 1,000 mg/ (Sodium Chloride) 110 mls @ 660 mls/hr IV ONETIME PRN PRN Reason: Bleeding Lactated Ringer's (Ringers, Lactated) 1,000 mls @ 150 mls/hr IV ASDIRECTED [facility] Ibuprofen (Ibuprofen 400 Mg Tab) 400 mg PO Q4H PRN PRN Reason: Pain Ibuprofen (Ibuprofen 800 Mg Tab) 800 mg PO Q6H PRN PRN Reason: Pain Last Admin: 02/09/21 04:32 Dose: 800 mg Documented by: Lidocaine HCl (Lidocaine 1% 50 Ml Mdv) 50 ml INJECT ONETIME PRN PRN Reason: Laceration repair Last Admin: 02/07/21 09:50 Dose: 50 ml Documented by: Methylergonovine Maleate (Methylergonovine 0.2 Mg/1 Ml Amp) 0.2 mg IM ASDIRECTED PRN PRN Reason: Post Hemorrhage Misoprostol (Misoprostol 200 Mcg Tab) 200 mcg PO ONETIME PRN PRN Reason: Post Hemorrhage Nalbuphine HCl (Nalbuphine 10 Mg/1 Ml Vial) 10 mg IVPUSH Q1H PRN PRN Reason: Pain (severe 7-10) Ondansetron HCl (Ondansetron 4 Mg/2 Ml Sdv) 4 mg IVPUSH Q4H PRN PRN Reason: Nausea/Vomiting Sodium Chloride (Sodium Chloride 0.9% 10 Ml Syringe) 10 ml FLUSH ASDIRECTED PRN PRN Reason: Keep Vein Open Sodium Chloride (Sodium Chloride 0.9% 2.5 Ml Syringe) 2.5 ml FLUSH ASDIRECTED PRN PRN Reason: Keep Vein Open Sodium Chloride (Sodium Chloride 0.9% 10 Ml Sdv) 10 ml IV ASDIRECTED PRN PRN Reason: IV Use Sterile Water (Water For Irrigation,Sterile 1,000 Ml Container) 1,000 ml IRR ASDIRECTED PRN PRN Reason: delivery Witch Jovana (Witch Jovana Medicated Pads 40/Jar) 1 pad TOP ASDIRECTED PRN PRN Reason: comfort care Last Admin: 02/07/21 15:38 Dose: 1 pad Documented by: Discontinued Medications Acetaminophen (Acetaminophen 500 Mg Tab) 1,000 mg PO ONETIME ONE Stop: 02/07/21 07:31 Last Admin: 02/07/21 07:41 Dose: 1,000 mg Documented by: Bupivacaine HCl (Bupivacaine 0.25% 10 Ml Sdv) Confirm Administered Dose 10 ml .ROUTE .STK-MED ONE Stop: 02/07/21 08:40 Last Admin: 02/07/21 10:57 Dose: Not Given Documented by: Fentanyl (Fentanyl 100 Mcg/2 Ml Sdv) Confirm Administered Dose 100 mcg .ROUTE .STK-MED ONE Stop: 02/07/21 02:07 Last Admin: 02/07/21 10:45 Dose: Not Given Documented by: Fentanyl (Fentanyl 100 Mcg/2 Ml Sdv) Confirm Administered Dose 100 mcg .ROUTE .STK-MED ONE Stop: 02/07/21 02:47 Last Admin: 02/07/21 10:51 Dose: Not Given Documented by: Ropivacaine (Naropin 0.2%) Confirm Administered Dose 100 mls @ as directed .ROUTE .STK-MED ONE Stop: 02/07/21 02:07 Last Admin: 02/07/21 10:45 Dose: Not Given Documented by: Ropivacaine (Naropin 0.2%) Confirm Administered Dose 100 mls @ as directed .ROUTE .STK-MED ONE Stop: 02/07/21 08:41 Last Admin: 02/07/21 10:57 Dose: Not Given Documented by: Ondansetron HCl (Ondansetron 4 Mg/2 Ml Sdv) Confirm Administered Dose 4 mg .ROUTE .STK-MED ONE Stop: 02/07/21 02:47 Last Admin: 02/07/21 10:51 Dose: Not Given Documented by: Ropivacaine (Ropivacaine 0.2% Pf 2 Mg/Ml 20 Ml Sdv) Confirm Administered Dose 20 ml .ROUTE .STK-MED ONE Stop: 02/07/21 02:07 Last Admin: 02/07/21 10:44 Dose: Not Given Documented by: - Infant Interaction Infant Disposition, : in Room with Family Interaction: Holding Feeding: Breastfed Infant; Nursed Well Support Person: - Recovery Exam Fundal Tone: Firm Fundal Level: 2 Fingerbreadths Below Umbilicus Fundal Placement: Midline Lochia Amount: Scant Lochia Color: Rubra/Red Perineum Description: Other (see below) Other Perinuem Description: 2nd degree laceration with repair. Episiotomy/Laceration: Approximated Bladder Status: Voiding Urinary Elimination: Voided - Exam General: Alert, Oriented Lungs: Normal Respiratory Effort Cardiovascular: Regular Rate, Regular Rhythm GI/Abdominal Exam: Normal Bowel Sounds, Soft, Non-Tender Extremities: Pedal Edema (trace). No: Sabi's Sign Skin: Warm, Dry, Intact Neurological: No New Focal Deficit Psy/Mental Status: Alert, Normal Affect, Normal Mood - Problem List & Annotations (1) Vaginal delivery SNOMED Code(s): 157877492 Code(s): O80 - ENCOUNTER FOR FULL-TERM UNCOMPLICATED DELIVERY Status: Acute Current Visit: Yes - Problem List Review Problem List Initiated/Reviewed/Updated: Yes - My Orders Last 24 Hours: My Active Orders 02/09/21 11:07 Ready for Discharge [RC] PER UNIT ROUTINE - Assessment Assessment:: PPD 2 status post Gestational hypertension--BPs normal range - Plan Plan:: Blood pressure, VS remain normal. Patient feels well, is going better. She would like to ho home. Discharge instructions reviewed. Follow up at [facility] 4 weeks. Discharge to home. Call to clinic if BP >140/90 at home.
[2021-02-09] MEDS: Lanolin 100% Cream 7 GM Tube TOP PRN (16:48)
== END 2021-02-09 17:00 | disposition home or self-care (01) | DRG 560 ==
LOC: MW.OBCHECK 01:28 → MW.OB 01:29 → MW.OBCHECK 09:00 → OBSVTOIN 09:15 → MW.OB 12:55
PROVIDERS: ADMIT Pediatrics Pediatric Hematology-Oncology; ATTEND Obstetrics & Gynecology
PROC: 10E0XZZ Delivery of Products of Conception, External Approach (ICD-10-PCS; principal; 2021-02-07)
PROC: 0KQM0ZZ Repair Perineum Muscle, Open Approach (ICD-10-PCS; 2021-02-07)
PROC: 3E0R3BZ Introduction of Anesthetic Agent into Spinal Canal, Percutaneous Approach (ICD-10-PCS; 2021-02-07)
PROC: 00HU33Z Insertion of Infusion Device into Spinal Canal, Percutaneous Approach (ICD-10-PCS; 2021-02-07)
DX: O13.4 Gestational [pregnancy-induced] hypertension without significant proteinuria, complicating childbirth (principal); Z37.0 Single live birth; O70.1 Second degree perineal laceration during delivery; Z88.5 Allergy status to narcotic agent; Z20.822 Contact with and (suspected) exposure to COVID-19; Z91.013 Allergy to seafood; Z79.899 Other long term (current) drug therapy; Z90.49 Acquired absence of other specified parts of digestive tract; Z3A.39 39 weeks gestation of pregnancy
CPT/HCPCS: 01967; 36415; 51702; 59025; 59409; 80053; 82570; 82803; 84112; 84156; 85014; 85018; 85027; 86592; 86850; 86900; 86901; A9270-GY; J2001; J2405; J2590; J2795; J3010; J3490; U0002

== ENCOUNTER 2025-05-06 15:18 | Emergency (ER) | payer BC, OTHER ==
[2025-05-06] MEDS: Ondansetron 4 MG/2 ML SDV IVPUSH ONE (15:56)
[2025-05-06] MEDS: Sodium Chloride 0.9% 1,000 ML IV ONE (15:56)
[2025-05-06 15:58] LABS: BASOPHILS ABSOLUTE AUTO 0.02 K/uL (0.00-0.20); BASOPHILS PERCENT AUTO 0.2 % (0.0-1.0); EOSINOPHILS ABSOLUTE AUTO 0.03 K/uL (0.00-0.45); EOSINOPHILS PERCENT AUTO 0.3 % (0.0-6.0); HEMATOCRIT 36.1 % (37.0-47.0); HEMOGLOBIN 12.3 g/dL (12.0-16.0); IMMATURE GRAN ABSOLUTE AUTO 0.03 K/uL (0.00-0.05); IMMATURE GRAN PERCENT AUTO 0.3 % (0.0-0.4); LYMPHOCYTES ABSOLUTE AUTO 1.26 K/uL (1.00-4.80); LYMPHOCYTES PERCENT AUTO 14.5 % (24.0-44.0); MEAN CORPUSCULAR HEMOGLOBIN 29.1 pg (28.0-32.0); MEAN CORPUSCULAR HGB CONC 34.1 g/dL (32.0-36.0); MEAN CORPUSCULAR VOLUME 85.3 fL (83.0-99.0); MEAN PLATELET VOLUME 9.3 fL (9.4-12.3); MONOCYTES ABSOLUTE AUTO 0.56 K/uL (0.00-0.80); MONOCYTES PERCENT AUTO 6.5 % (0.0-8.0); NEUTROPHILS ABSOLUTE AUTO 6.78 K/uL (1.80-7.70); NEUTROPHILS PERCENT AUTO 78.2 % (41.0-71.0); PLATELET COUNT,PLT 228 K/uL (150-400); RED BLOOD CELL COUNT 4.23 M/uL (4.10-5.30); WHITE BLOOD CELL COUNT,WBC 8.68 K/uL (3.9-11.3)
[2025-05-06 16:50] LABS: A/G RATIO 1.3 (0.9-1.6); ALANINE AMINOTRANSFERASE,ALT 16 IU/L (14-63); ALBUMIN 3.7 g/dL (3.4-5.0); ALKALINE PHOSPHATASE 60 U/L (46-116); ASPARTATE AMNIOTRANSFERASE,AST 17 IU/L (15-37); BILIRUBIN TOTAL 0.2 mg/dL (0.2-1.0); BLOOD UREA NITROGEN,BUN 12 mg/dL (7.0-18.0); CALCIUM 8.9 mg/dL (8.5-10.1); CARBON DIOXIDE,CO2 25.6 mmol/L (21.0-32.0); CHLORIDE,CL 103 mmol/L (98-107); CREATININE 0.6 mg/dL (0.6-1.0); GLUCOSE RANDOM 115 mg/dL (74-106); POTASSIUM,K 3.7 mmol/L (3.5-5.1); PROTEIN TOTAL,TP 6.6 g/dL (6.4-8.2); SODIUM,NA 136 mmol/L (136-145)
[2025-05-06 16:51] LABS: ESTIMATED GFR 118 mL/min (>60)
[2025-05-06 18:06] LABS: BILIRUBIN,URINE NEGATIVE (NEGATIVE); COLOR,URINE YELLOW; GLUCOSE,URINE NEGATIVE (NEGATIVE); KETONES,URINE NEGATIVE (NEGATIVE); LEUKOCYTE ESTERASE,URINE TRACE (NEGATIVE); NITRITE,URINE NEGATIVE (NEGATIVE); OCCULT BLOOD,URINE NEGATIVE (NEGATIVE); PROTEIN,URINE NEGATIVE (NEGATIVE); UROBILINOGEN,URINE 0.2 EU/dL (<2.0)
[2025-05-06 18:14] LABS: APPEARANCE,URINE HAZY; BACTERIA,URINE FEW (NEGATIVE); RBC,URINE 0-2 (0-2/HPF); SQUAMOUS EPITHELIAL CELLS,UR FEW
[2025-05-06 18:15] LABS: MUCUS,URINE MODERATE (NONE-MOD)
== END 2025-05-06 18:39 | disposition home or self-care (01) ==
LOC: MW.ED 15:18
DX: O99.891 Other specified diseases and conditions complicating pregnancy (principal); R10.32 Left lower quadrant pain; O21.0 Mild hyperemesis gravidarum; O23.41 Unspecified infection of urinary tract in pregnancy, first trimester; N39.0 Urinary tract infection, site not specified; Z90.49 Acquired absence of other specified parts of digestive tract; Z88.5 Allergy status to narcotic agent; Z88.8 Allergy status to other drugs, medicaments and biological substances; Z91.013 Allergy to seafood; Z79.899 Other long term (current) drug therapy; Z75.3 Unavailability and inaccessibility of health-care facilities; Z3A.10 10 weeks gestation of pregnancy
CPT/HCPCS: 36415; 76801; 80053; 81001; 84702; 85025; 86900; 86901; 87086; 96361; 96374; 99284; J2405; J7030; 99283